=== PATIENT | female | born 1960 | race Caucasian/White ===

== ENCOUNTER 2016-07-01 08:21 | Inpatient (IN) | payer MEDICARE, OTHER ==
[2016-07-01] VITALS (16 sets, daily range): BP systolic 80–120; BP diastolic 58–74; PULSE 62–87; RESP 16–18; TEMP 97.8–98.4; O2SAT 94–100
[~2016-07-01] VITALS: Ht 162.6 cm; Wt 57.8 kg
[~2016-07-01 08:21] MED LIST: COUG100S2 PO; HYDR10TA16 PO; MEDR4PAK3 PO; META800 PO; OXYB5TAB33 PO; OXYC-360 PO; PHEN12.5 PO; REST15CA PO; REST30CA PO; ZITHTAB6 PO; [UNRECOGNIZED DRUG - CODE] PO
[2016-07-01] MEDS ORDERED: RESP: ALBUTEROL 2.5 MG/IPRATROPIUM 0.5 MG NEB (SCH) INH ONE (08:30)
[2016-07-01] MEDS ORDERED: LORazepam 2 MG/ML VIAL IV PUSH ONE (08:30)
[2016-07-01] MEDS ORDERED: methylPREDNISolone SOD SUCC 125 MG/2 ML VIAL IVP ONE (08:30)
[2016-07-01] MEDS: SODIUM CHLORIDE 0.9% FLUSH 10 ML FLUSH IVF PRN ×3 (08:45→13:19)
[2016-07-01 09:01] LABS: AUTOMATED NEUTROPHIL # 3.7 TH/MM3 (1.8-7.7); BASOPHIL % 0.7 % (0.0-2.0); EOSINOPHIL # 0.1 TH/MM3 (0-0.4); HEMATOCRIT 40.3 % (35.0-46.0); HEMO FLAGS DIFF FINAL; LYMPH % 36.6 % (9.0-44.0); LYMPHOCYTE # 2.4 TH/MM3 (1.0-4.8); MEAN CELL VOLUME 89.8 FL (80.0-100.0); MEAN CORPUSCULAR HEMOGLOBIN 30.9 PG (27.0-34.0); MEAN CORPUSCULAR HGB CONC 34.4 % (32.0-36.0); NEUT % 55.7 % (16.0-70.0); PLATELET COUNT 313 TH/MM3 (150-450); RED BLOOD COUNT 4.49 MIL/MM3 (4.00-5.30); RED CELL DISTRIBUTION WIDTH 11.9 % (11.6-17.2); WHITE BLOOD COUNT 6.6 TH/MM3 (4.0-11.0)
[2016-07-01 09:07] LABS: POTASSIUM 3.6 MEQ/L (3.5-5.1)
[2016-07-01 09:10] LABS: BICARBONATE 26.9 MEQ/L (21.0-32.0)
--- NOTE | 2016-07-01 09:25 | PD ---
HPI Chief Complaint: Respiratory Symptoms Time Seen by Provider: 08:22 Travel History International Travel<30 days: No Contact w/Intl Traveler<30days: No Traveled to known affect area: No History of Present Illness HPI 56-year-old female comes to the ER with dyspnea. It started suddenly early this morning. She called an ambulance who brought the patient to the ER. She reports a clicking sensation in her throat and difficulty with inspiration. EMS reports the O2 sat was in the 60s on room air upon their arrival increased to the 90s with a nasal cannula in the ER. The patient reports she was recently diagnosed with bronchitis and completed a course of azithromycin yesterday.. She has had no fever. No similar episode has occurred. PFSH Past Medical History Arthritis: Yes Blood Disorders: No Anxiety: No Depression: No Cancer: No Cardiovascular Problems: No Chemotherapy: No Endocrine: No Genitourinary: Yes (NEEDS TO SELF CATH FOR URINE at times but able to void on own) Headaches: Yes Musculoskeletal: Yes (SPINA BIFIDA) Neurologic: Yes (, EEG done at primary md's office today) Psychiatric: No Respiratory: No Radiation Therapy: No Renal Failure: Yes (HAS TO FORCE URINATION AND SOMETIMES CATH.) Tetanus Vaccination: < 5 Years Influenza Vaccination: No ?: Not Menopausal: Yes : 4 Para: 3 Miscarriage: 1 Past Surgical History AICD: No Arteriovenous Shunt: No Cardiac Surgery: No Genitourinary Surgery: Yes Hysterectomy: Yes Insulin Pump: No Joint Replacement: No Neurologic Surgery: Yes Oral Surgery: Yes (TONSILS) Pacemaker: No Thoracic Surgery: No Tonsillectomy: Yes Other Surgery: Yes (recontruction surgery -had device placed like bird cage to support tracha) Social History Alcohol Use: Yes (OCCAS beer) Tobacco Use: No (states have 2-3 cigs occas. hx of 1/2-1 ppd for 20+yrs) Substance Use: No Allergies-Medications (Allergen,Severity, Reaction): Coded Allergies: Morphine (Verified Allergy, Intermediate, Nausea/Vomiting, 07/01/16) Uncoded Allergies: BRAZIL NUTS (Allergy, Severe, SWOLLEN THROAT, 07/01/16) . DAIRY PRODUCTS (Adverse Reaction, Mild, Diarrhea, 07/01/16) . Reported Meds & Prescriptions Reported Meds & Active Scripts Active Reported Levothyroxine (Levothyroxine Sodium) 100 Mcg Tab 100 Mcg PO DAILY Ditropan (Oxybutynin Chloride) 5 Mg Tab 5 Mg PO Q12HR PRN Dilaudid (Hydromorphone HCl) 4 Mg Tab 4 Mg PO TID PRN Review of Systems Except as stated in HPI: all other systems reviewed are Neg General / Constitutional: No: Fever Respiratory: Positive: Shortness of Breath Physical Exam Narrative GENERAL: Well-nourished well-developed 56-year-old female mild distress SKIN: Focused skin assessment warm/dry. HEAD: Atraumatic. Normocephalic. EYES: Pupils equal and round. No scleral icterus. No injection or drainage. ENT: No nasal bleeding or discharge. Mucous membranes pink and moist. Posterior oropharynx is widely patent. NECK: Trachea midline. No JVD. Surgical incision anterior neck, well healed. There is a palpable "clicking" sensation with gentle manipulation of the trachea. CARDIOVASCULAR: Regular rate and rhythm. No murmur appreciated. RESPIRATORY: Minimal tachypnea. Minimal wheezing. Occasional cough. GASTROINTESTINAL: Abdomen soft, non-tender, nondistended. Hepatic and splenic margins not palpable. MUSCULOSKELETAL: No obvious deformities. No clubbing. No cyanosis. No edema. NEUROLOGICAL: Awake and alert. No obvious cranial nerve deficits. Motor grossly within normal limits. Normal speech. PSYCHIATRIC: Appropriate mood and affect; insight and judgment normal. Data Data Last Documented VS Vital Signs Date Time Temp Pulse Resp B/P Pulse Ox O2 Delivery O2 Flow Rate FiO2 07/01/16 12:15 71 16 92/69 99 Nasal Cannula 2 07/01/16 08:30 98.4 VS reviewed Orders Complete Blood Count With Diff (07/01/16 08:22) Basic Metabolic Panel (Bmp) (07/01/16 08:22) Iv Access Insert/Monitor (07/01/16 08:22) Ecg Monitoring (07/01/16 08:22) Oximetry (07/01/16 08:22) Oxygen Administration (07/01/16 08:22) Chest, Single Ap (07/01/16 08:22) Sodium Chloride 0.9% Flush (Ns Flush) (07/01/16 08:30) Methylprednisolone So Succ Inj (Solumedr (07/01/16 08:30) Albuterol-Ipratropium Neb (Duoneb Neb) (07/01/16 08:30) Soft Tissue Neck (07/01/16 ) Lorazepam Inj (Ativan Inj) (07/01/16 08:30) Sodium Chlor 0.9% 1000 Ml Inj (Ns 1000 M (07/01/16 09:30) Ct Soft Tiss Neck W Iv Cont (07/01/16 09:47) Ct Pulmonary Angiogram (07/01/16 09:47) Iohexol 350 Inj (Omnipaque 350 Inj) (07/01/16 11:15) Sodium Chlorid 0.9% 500 Ml Inj (Ns 500 M (07/01/16 13:15) Blood Culture (07/01/16 13:26) Ceftriaxone Inj (Rocephin Inj) (07/01/16 13:30) Azithromycin Inj (Zithromax Inj) (07/01/16 13:30) Admit Order (Ed Use Only) (07/01/16 13:31) Labs Laboratory Tests Test 07/01/16 08:40 White Blood Count 6.6 TH/MM3 Red Blood Count 4.49 MIL/MM3 Hemoglobin 13.9 GM/DL Hematocrit 40.3 % Mean Corpuscular Volume 89.8 FL Mean Corpuscular Hemoglobin 30.9 PG Mean Corpuscular Hemoglobin 34.4 % Concent Red Cell Distribution Width 11.9 % Platelet Count 313 TH/MM3 Mean Platelet Volume 7.1 FL Neutrophils (%) (Auto) 55.7 % Lymphocytes (%) (Auto) 36.6 % Monocytes (%) (Auto) 6.0 % Eosinophils (%) (Auto) 1.0 % Basophils (%) (Auto) 0.7 % Neutrophils # (Auto) 3.7 TH/MM3 Lymphocytes # (Auto) 2.4 TH/MM3 Monocytes # (Auto) 0.4 TH/MM3 Eosinophils # (Auto) 0.1 TH/MM3 Basophils # (Auto) 0.0 TH/MM3 CBC Comment DIFF FINAL Differential Comment Sodium Level 145 MEQ/L Potassium Level 3.6 MEQ/L Chloride Level 108 MEQ/L Carbon Dioxide Level 26.9 MEQ/L Anion Gap 10 MEQ/L Blood Urea Nitrogen 14 MG/DL Creatinine 0.58 MG/DL Estimat Glomerular Filtration 108 ML/MIN Rate Random Glucose 110 MG/DL Calcium Level 8.5 MG/DL MDM Medical Decision Making Medical Screen Exam Complete: Yes Emergency Medical Condition: Yes Medical Record Reviewed: Yes Differential Diagnosis Pneumonia, bronchitis, trachea injury, injury related to surgery 7 years ago Narrative Course CBC & BMP Diagram 07/01/16 08:40 Last [address] 07/01/1647 Signed Impressions: Service Date/Time: Friday, July 01, 2016 10:58 - CONCLUSION: No acute findings. Jose Arroyo MD CT Angiography 07/01/1647 Signed Impressions: Service Date/Time: Friday, July 01, 2016 10:41 - CONCLUSION: 1. No evidence of pulmonary embolus. 2. Mild right lower lobe atelectasis and mild nonspecific right lower lobe groundglass opacity. 3. Moderate pulmonary parenchymal emphysema. Jose Arroyo MD Chest X-Ray 07/01/1622 Signed Impressions: Service Date/Time: Friday, July 01, 2016 08:58 - CONCLUSION: Atelectasis versus mild consolidation at the right lung base. Jose Arroyo MD Soft Tissue Neck X-Ray 07/01/16 0000 Signed Impressions: Service Date/Time: Friday, July 01, 2016 09:01 - CONCLUSION: 1. Soft tissues unremarkable. 2. Postsurgical findings at C4-5. Moderate severity bony degenerative findings. Jose Arroyo MD The patient's breathing has improved overall. She has had episodes of relative hypotension with systolic blood pressures in the 70s. Trending her blood pressure measurements years into the past demonstrates the tendency towards relatively hypotensive values. Her pulses remained in the 60s. She reports improvement after DuoNeb treatment. There is density in the right lung on chest x-ray and CT possibly suggestive of a pneumonitis, atelectasis or pneumonia. She's had no fever. She has had an impressive cough. There is a vague clicking sensation in the trachea which is palpable on exam the patient complains of it as well however the CT of the soft tissue neck is unremarkable and her O2 sats of been about 100% since arrival and her nasal cannula 02 L right now. Abx started. Blood cultures drawn. d/w Dr Hayes. Critical Care Narrative Aggregate critical care time was 45 minutes. Time to perform other separately billable procedures was not included in the critical care time. My time did not include minutes spent treating any other patients simultaneously or on activities that did not directly contribute to the patient's treatment. The services I provided to this patient were to treat and/or prevent clinically significant deterioration that could result in: Respiratory arrest, hypoxia I provided critical care services requiring my management, as noted below: Chart data review, documentation time, medication orders and management, vital sign assessments/reviewing monitor data, ordering and reviewing lab tests, ordering and interpreting/reviewing x-rays and diagnostic studies, care of the patient and discussion of the patient with the admitting physicians. Diagnosis Primary Impression: Dyspnea and respiratory abnormalities Additional Impressions: Throat symptom Atelectasis Cough Admitting Information Admitting Physician Requests: Observation Juan R Bhatia MD Jul 01, 2016 09:25
[2016-07-01] MEDS ORDERED: SODIUM CHLOR 0.9% 1000 ML INJ 1,000 ML IV ONE (09:30)
[2016-07-01] MEDS ORDERED: OXYB5TAB10 PO (09:35)
[2016-07-01] MEDS ORDERED: DILA4TAB2 PO (09:35)
[2016-07-01] MEDS ORDERED: LEVO100T5 PO (09:37)
--- NOTE | 2016-07-01 09:50 | RADHPO ---
EXAM DATE/TIME: 07/01/2016 08:58 [facility] COMPARISON: No previous studies available for comparison. INDICATIONS : Shortness of breath. MEDICAL HISTORY : Spina bifida. SURGICAL HISTORY : Trachea support device implant. ENCOUNTER: Initial ACUITY: 1 day PAIN SCORE: 0/10 LOCATION: Bilateral chest FINDINGS: Single AP view of the chest. Parenchymal at the anterior aspect of the right lower lung indicating at electasis versus mild consolidation. Cardiomediastinal silhouette within normal limits. No evidence o f pleural effusion or pneumothorax. CONCLUSION: Atelectasis versus mild consolidation at the right lung base. Jose Arroyo MD on July 01, 2016 at 9:47 Board Certified Radiologist. This report was verified electronically.
--- NOTE | 2016-07-01 09:58 | RADHPO ---
EXAM DATE/TIME: 07/01/2016 09:01 [facility] COMPARISON: No previous studies available for comparison. INDICATIONS : Shortness of breath. MEDICAL HISTORY : Spina bifida. SURGICAL HISTORY : Trachea support device. ENCOUNTER: Initial ACUITY: 1 day PAIN SCORE: 0/10 LOCATION: neck. FINDINGS: 2 views soft tissue neck. Retropharyngeal soft tissues within normal limits. Epiglottic shadow withi n normal limits. Postsurgical findings at C4-[address] with fusion hardware in [address]. Moderate-sized osteophy geraldine anteriorly at C3-4 and C4-5. Alignment within normal limits. No evidence of fracture. Interverteb ral disc narrowing at C3-4, C5-6, and C6-7. CONCLUSION: 1. Soft tissues unremarkable. 2. Postsurgical findings at C4-5. Moderate severity bony degenerative findings. Jose Arroyo MD on July 01, 2016 at 9:55 Board Certified Radiologist. This report was verified electronically.
[2016-07-01] MEDS ORDERED: IOHEXOL 350 MG/ML 10 ML VIAL (for RAD DIAG) IV ONE (11:15)
--- NOTE | 2016-07-01 11:57 | RADHPO ---
EXAM DATE/TIME: 07/01/2016 10:41 [facility] COMPARISON: CHEST SINGLE AP, July 01, 2016, 8:58. INDICATIONS : Dyspnea. Harder to get air in than push it out. IV CONTRAST: 50 cc Omnipaque 350 (iohexol) IV RADIATION DOSE: 6.93 CTDIvol (mGy) MEDICAL HISTORY : Spina bifida. SURGICAL HISTORY : Tonsillectomy. Hysterectomy.C1 surgery. ENCOUNTER: Initial ACUITY: 1 day PAIN SCALE: 0/10 LOCATION: chest TECHNIQUE: Volumetric scanning of the chest was performed using a pulmonary embolism protocol MIP images were re constructed. Using automated exposure control and adjustment of the mA and/or kV according to patien t size, radiation dose was kept as low as reasonably achievable to obtain optimal diagnostic quality images. FINDINGS: PULMONARY ARTERIES: No filling defects are seen in the pulmonary arteries through the segmental level. LUNGS: Moderate severity bilateral pulmonary parenchymal emphysema. Patchy atelectasis at the right lung bas e. Mild groundglass opacity in the right lower lobe PLEURAE: There is no pleural thickening or pleural effusion. MEDIASTINUM: There is good visualization of the great vessels of the middle mediastinum. No evidence of mediastin al or hilar adenopathy/mass. MUSCULOSKELETAL: Within normal limits for patient age. MISCELLANEOUS: The visualized upper abdominal organs demonstrate no acute abnormality. CONCLUSION: 1. No evidence of pulmonary embolus. 2. Mild right lower lobe atelectasis and mild nonspecific right lower lobe groundglass opacity. 3. Moderate pulmonary parenchymal emphysema. Jose Arroyo MD on July 01, 2016 at 11:42 Board Certified Radiologist. This report was verified electronically.
--- NOTE | 2016-07-01 12:04 | RADHPO ---
EXAM DATE/TIME: 07/01/2016 10:58 [facility] COMPARISON: CT PULMONARY ANGIOGRAM, July 01, 2016, 10:41. INDICATIONS : Clicking sensation in throat with inspiration. Harder to get air in than push it out. IV CONTRAST: 50 cc Omnipaque 350 (iohexol) IV RADIATION DOSE: 8.62 CTDIvol (mGy) MEDICAL HISTORY : Spina bifida. SURGICAL HISTORY : Hysterectomy. Tonsillectomy.C1 surgery. ENCOUNTER: Initial ACUITY: 1 day PAIN SCALE: 0/10 LOCATION: neck TECHNIQUE: Volumetric scanning of the neck was performed. Using automated exposure control and adjustment of th e mA and/or kV according to patient size, radiation dose was kept as low as reasonably achievable to obtain optimal diagnostic quality images. FINDINGS: NASOPHARYNX: The nasopharyngeal airway has a normal configuration. No mucosal thickening or mass is seen. OROPHARYNX: The intrinsic muscles of the tongue are symmetric. The tonsillar pillars are intact. The prevertebr al soft tissues are not thickened. LARYNX: The supraglottic, glottic, and infraglottic structures are intact. PARAPHARYNGEAL: The parapharyngeal space is intact. SALIVARY GLANDS: The parotid and submandibular glands are intact. LYMPH NODES: No enlarged or necrotic-appearing nodes. THYROID: 9 mm rounded calcification in the left lobe. BONES: Degenerative findings of the cervical spine. Postsurgical findings at C4-5. CONCLUSION: No acute findings. Jose Arroyo MD on July 01, 2016 at 11:58 Board Certified Radiologist. This report was verified electronically.
[2016-07-01] MEDS ORDERED: SODIUM CHLORID 0.9% 500 ML INJ 500 ML IV ONE (13:15)
[2016-07-01] MEDS ORDERED: cefTRIAXone INJ 1,000 MG in SODIUM CHLORIDE 0.9% INJ 100 ML IV ONE (13:30)
[2016-07-01] MEDS ORDERED: AZITHROMYCIN INJ 500 MG in SODIUM CHLOR 0.9% 250 ML INJ 250 ML IV ONE (13:30)
[2016-07-01] MEDS ORDERED: NALOXONE HCL 0.4 MG/ML AMP IV PRN (14:15)
[2016-07-01] MEDS ORDERED: SODIUM CHLORIDE 0.9% FLUSH 10 ML FLUSH IV FLUSH PRN (14:15)
[2016-07-01] MEDS: SODIUM CHLORIDE 0.9% FLUSH 10 ML FLUSH IV FLUSH PRN ×2 (14:40→21:09)
[2016-07-01] MEDS ORDERED: guaiFENesin/DEXTROMETHORPHAN 200 MG/20 MG/10 ML CUP PO PRN (15:00)
[2016-07-01] MEDS ORDERED: SENNOSIDES 8.6 MG TAB PO PRN (15:00)
[2016-07-01] MEDS ORDERED: ONDANSETRON HCL 4 MG/2 ML VIAL IVP PRN (15:00)
[2016-07-01] MEDS: RESP: ALBUTEROL 2.5 MG/IPRATROPIUM 0.5 MG NEB (SCH) INH ×2 (15:24→21:58)
[2016-07-01] MEDS: SODIUM CHLOR 0.45% 1000 ML INJ 1,000 ML IV SCH (15:30)
[2016-07-01] MEDS ORDERED: ACETAMINOPHEN 325 MG TAB PO PRN (16:00)
[2016-07-01 17:45] LABS: BLOOD GAS BASE EXCESS -3.9 mmol/L (-2-2); BLOOD GAS CARBOXYHEMOGLOBIN 1.6 % (0-4); BLOOD GAS HCO3 21 mmol/L (22-26); BLOOD GAS O2 HGB SATURATION 96 % (90-100); BLOOD GAS OXYGEN CONTENT 16.2 Vol % (12.0-20.0); BLOOD GAS PCO2 37 mmHG (38-42); BLOOD GAS PO2 128 mmHG (61-120); BLOOD GAS TOTAL HGB 11.8 G/DL (12.0-16.0); TEMP CORR TO 98.6
[2016-07-01 17:46] LABS: CRITICAL VALUE NO; DRAW SITE RT RADIAL; LITER FLOW 2 L/M; NUMBER OF ARTERIAL PUNCTURES 1; OXYGEN DEVICE NASAL CANNULA; STAT NO; ULNAR PULSE PRESENT
[2016-07-01] MEDS ORDERED: ENOXAPARIN SODIUM 40 MG/0.4 ML SYRINGE SQ ONE (18:00)
--- NOTE | 2016-07-01 18:04 | MB ---
cc: GRUPO STEPHENS DATE OF CONSULTATION 07/01/16 REASON FOR CONSULTATION Respiratory distress and hypoxia. HISTORY OF PRESENT ILLNESS This is a 56-year-old white female who has had a prior history of C-spine surgery at the [facility] more than 4 years ago. She was experiencing some shortness of breath earlier today which started rather suddenly early in the morning. She had a clicking sensation in her neck and tracheal region and following that she just could not get any air into her lungs and thus became extremely short of breath and states that her O2 sats had dropped into the 60s. She then was brought to the emergency room by [facility]. She was placed on oxygen via mask and subsequently a nasal canula and saturation was done which apparently was over 95%. The patient then was sent for a CT scan of the chest and neck. The CT of the neck showed no significant abnormalities. No evidence of upper airway compromise and no lesions were seen. CT angiogram was done which showed some atelectasis of the lung bases. No evidence of pulmonary emboli and there was mild ground glass opacities in the right lower lobe as well as evidence of emphysema. The patient has now been placed on IV Zithromax and Rocephin. Her white count is normal at 6.6. She states that she is breathing better and she does have an occasional cough but denies any hemoptysis or chest pain. The patient had been on Zithromax prior to this admission and finished a full course this past week for an episode of bronchitis. PAST MEDICAL HISTORY Has included history of spina bifida since childhood. She has had several procedures done on her spine including the lumbar spine where she had more than three procedures and she had a C-spine reconstruction and apparently had to have a halo brace or a device placed around the neck following a surgery. She had a tonsillectomy remotely. Most of her cervical procedures were done at the [facility] and the last procedure was in 2008 where anterior cervical disk fusion was done with cadaveric bones and subsequently the hardware was removed and a cage procedure was done. She has had multiple tethered cord surgeries of the neck. Other surgeries include carpal tunnel release bilaterally, ankle fusion times two, tonsillectomy remotely, hysterectomy as well as C-sections times three. HABITS The patient smoked half to one pack per day for over 20 years. Alcohol use moderate, weekly. ALLERGIES ALLERGIES TO MORPHINE. MEDICATIONS Included: 1. Roxicodone. 2. Recently on Zithromax. 3. Naprosyn p.r.n. 4. Ativan as needed. FAMILY HISTORY Noncontributory. Both parents alive, in good health. REVIEW OF SYSTEMS The patient has had no recent weight loss. No headaches. Some postnasal drip, hoarseness, choking sensation, cough with expectoration, epigastric distress and reflux. She does have urinary retention and has to catheterize herself at times. She has trouble ambulating due to weakness of her right lower extremity and uses a cane to ambulate. The other system review is negative except for anxiety. PHYSICAL EXAMINATION GENERAL: This averagely built middle aged white female who is alert, in no acute distress. VITAL SIGNS: Blood pressure 112/70, pulse is 6085, respirations 18, temperature is 97.5. HEENT: Head normocephalic. Pupils are reactive. Tongue is moist. Throat is injected. Ears no inflammation. NECK: There is a scar from surgery in the anterior neck. No venous distention. No thyromegaly or lymphadenopathy. CHEST: Equal movements with decreased breath sounds at the bases. Occasional wheezes in the upper chest. No crackles in either side. HEART: The heart sounds are regular S1-S2 with no murmur. No S3. ABDOMEN: The abdomen is soft, schapoid. No masses or organomegaly, tenderness. Her bowel sounds are active. EXTREMITIES: No lesions. No edema. No calf tenderness. Decrease peripheral pulses. Reflexes are 1+. There is some weakness of the right lower extremity. NEURO: Cranial nerves not tested. RECTAL: Examination is deferred. SKIN: Dry and warm. IMPRESSION 1. Acute respiratory insufficiency with upper airway spasm. 2. 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 3. Probable underlying obstructive lung disease. 4. Acute exacerbation of chronic bronchitis. 5. Hypothyroidism. PLAN The patient has been placed on oxygen at 2 liters nasal canula. A blood gas study will be done. Nebulized DuoNeb solution added q.i.d. as well as Solu-Medrol 40 milligrams IV q. 8 hours. We will continue the Rocephin 1 gram IV daily, Zithromax 500 milligrams IV daily. The patient will also be placed on Lovenox subcu 40 milligrams daily. A pulmonary function study will be done with bronchodilators. The patient will also need an ENT evaluation once she is stabilized. Thank you Dr. Hayes for this consultation. Grupo Stephens MD JMAYLIN/KINA /5:18 PM /5:30 PM
[2016-07-01] MEDS ORDERED: SODIUM CHLORIDE 0.9% FLUSH 10 ML FLUSH IV FLUSH SCH (21:00)
[2016-07-01] MEDS ORDERED: methylPREDNISolone SOD SUCC 40 MG/1 ML VIAL IV SCH (21:00)
[2016-07-01] MEDS: SODIUM CHLORIDE 0.9% FLUSH 10 ML FLUSH IV FLUSH SCH (21:08)
[2016-07-01] MEDS: methylPREDNISolone SOD SUCC 40 MG/1 ML VIAL IV SCH (21:09)
[2016-07-01] MEDS: HYDROmorphone HCL 2 MG TAB PO PRN (22:37)
[2016-07-01] MEDS: ALPRAZolam 0.25 MG TAB PO PRN (22:37)
[2016-07-02] VITALS (10 sets, daily range): BP systolic 85–105; BP diastolic 55–69; PULSE 66–86; RESP 16–18; TEMP 96.7–98.8; O2SAT 47–99
[2016-07-02] MEDS: RESP: ALBUTEROL 2.5 MG/IPRATROPIUM 0.5 MG NEB (SCH) INH ×4 (03:53→21:26)
[2016-07-02] MEDS: LEVOTHYROXINE SODIUM 100 MCG TAB PO SCH (06:52)
[2016-07-02] MEDS: HYDROmorphone HCL 2 MG TAB PO PRN ×4 (06:52→23:44)
[2016-07-02] MEDS: SODIUM CHLOR 0.45% 1000 ML INJ 1,000 ML IV SCH ×2 (06:52→16:41)
[2016-07-02] MEDS: methylPREDNISolone SOD SUCC 40 MG/1 ML VIAL IV SCH ×3 (06:53→23:43)
[2016-07-02] MEDS: SODIUM CHLORIDE 0.9% FLUSH 10 ML FLUSH IV FLUSH PRN (06:53)
[2016-07-02 08:55] LABS: POTASSIUM 3.8 MEQ/L (3.5-5.1)
[2016-07-02 08:56] LABS: BASOPHIL % 0.2 % (0.0-2.0); EOSINOPHIL % 0.1 % (0.0-4.0); HEMATOCRIT 35.1 % (35.0-46.0); HEMO FLAGS DIFF FINAL; LYMPHOCYTE # 1.5 TH/MM3 (1.0-4.8); MEAN CELL VOLUME 90.6 FL (80.0-100.0); MEAN CORPUSCULAR HEMOGLOBIN 29.9 PG (27.0-34.0); NEUT % 77.7 % (16.0-70.0); PLATELET COUNT 317 TH/MM3 (150-450); RED BLOOD COUNT 3.87 MIL/MM3 (4.00-5.30); RED CELL DISTRIBUTION WIDTH 12.6 % (11.6-17.2); WHITE BLOOD COUNT 8.9 TH/MM3 (4.0-11.0)
[2016-07-02 08:58] LABS: BICARBONATE 26.3 MEQ/L (21.0-32.0)
[2016-07-02] MEDS: AZITHROMYCIN INJ 500 MG in SODIUM CHLOR 0.9% 250 ML INJ 250 ML IV SCH (09:00)
[2016-07-02] MEDS: ALPRAZolam 0.25 MG TAB PO PRN ×2 (10:09→23:46)
[2016-07-02] MEDS: SODIUM CHLORIDE 0.9% FLUSH 10 ML FLUSH IV FLUSH SCH ×2 (10:10→23:45)
[2016-07-02] MEDS: cefTRIAXone INJ 1,000 MG in SODIUM CHLORIDE 0.9% INJ 100 ML IV SCH (10:11)
[2016-07-02] MEDS: PANTOPRAZOLE SOD 40 MG DELAYED RELEASE TAB PO SCH (10:21)
[2016-07-02] MEDS: ENOXAPARIN SODIUM 40 MG/0.4 ML SYRINGE SQ SCH (10:21)
--- NOTE | 2016-07-02 10:21 | MH ---
cc: HOLLIS WONG MD DATE OF ADMISSION: 07/01/2016 CHIEF COMPLAINT Shortness of breath. HISTORY OF PRESENT ILLNESS This is a 56-year-old female with a past medical/surgical history significant for arthritis, urinary retention, spina bifida, tonsillectomy, had a device placed like a birdcage to support trachea in the neck and hysterectomy, who came to the ER at [facility] complaining of shortness of breath, wheezing and cough. She had very minimal sputum but she said that she got short of breath to the extent that she was not able to take care of herself at home and decided to come to [facility]. She called EMS. Her oxygen saturation was in the 80s on room air during arrival and increased to 90% with nasal cannula. The patient was recently diagnosed with bronchitis and completed a course of azithromycin. She has no fever. Other than that nothing significant. PAST MEDICAL/SURGICAL HISTORY As dictated above. Also, history of hypothyroidism. SOCIAL HISTORY She smoked 2-3 cigarettes a day for more than 20 years. She drinks beer occasionally. Denies any drug abuse. Lives at home with her boyfriend. She is on Disability. FAMILY HISTORY Nothing significant. ALLERGIES 1. MORPHINE. 2. BRAZIL NUTS. 3. DAIRY PRODUCTS. MEDICATIONS 1. Levothyroxine 100 mcg p.o. daily. 2. Ditropan 5 mg p.o. q.12h. 3. Dilaudid 4 mg p.o. t.i.d. p.r.n. pain. REVIEW OF SYSTEMS Positive for cough and mild shortness of breath. All other review of systems are negative. PHYSICAL EXAMINATION GENERAL: This is a 56-year-old female lying on the bed not in acute distress. VITAL SIGNS: Temperature 98.0, heart rate 66, respirations 16, blood pressure 92/60. O2 saturation 98% on two liters nasal cannula. HEENT: Normocephalic, atraumatic. EOMI. PERRL. Oral mucosa moist. NECK: Supple. No visible thyromegaly or neck mass. Trachea is central. CV: Regular rate and rhythm. LUNGS: Respiration with bilateral mild wheezing, decreased air entry bilaterally. ABDOMEN: Soft, nontender. Bowel sounds audible. EXTREMITIES: No cyanosis or clubbing. Full range of motion of all extremities. NEUROLOGIC: Awake, alert, oriented x4. No focal deficits. SKIN: Warm and dry. PSYCHIATRIC: The patient is cooperative. Mood and affect are normal. LABORATORY CBC is totally unremarkable. ABG done shows bicarb 21, base excess -3.9. Oxygen saturation 96%, pH 7.36, PCO2 37 with PO2 128. BMP is unremarkable except for glucose 133 high, chloride 108 high. Blood cultures done x2 are negative so far. IMAGING Soft tissue neck x-ray was done and shows soft tissue unremarkable. Postsurgical findings and C4-C5, moderate to severe bony degenerative findings. Chest x-ray done shows atelectasis versus mild consolidation at the right lung base. CT done shows nothing acute. CT angio chest was done and shows no evidence of pulmonary embolus, mild right lower lobe atelectasis, mild nonspecific right lower lobe ground-glass opacity, moderate pulmonary parenchymal emphysema. ASSESSMENT AND PLAN 1. This is a 56-year-old female who came to the ER diagnosed with shortness breath, but most worrisome is COPD exacerbation. The patient is on Rocephin one gram IV daily and Zithromax 500 mg IV daily. Patient is also on Solu-Medrol 40 mg IV q.8h. and Robitussin DM 10 mL q.4h., DuoNeb nebulization q.6h. Pulmonary was consulted. Dr. Stephens has seen the patient. I agree with the plan. The patient needs an ENT evaluation once stabilized. 2. History of hypothyroidism. Continue home medication. 3. Urinary retention. Continue home medication. 4. History of spina bifida. 5. History of arthritis. Continue home medication. 6. DVT prophylaxis. 7. Lovenox 40 mg subcutaneous daily. 8. GI prophylaxis with Protonix 40 mg p.o. daily. 9. Check CBC and CMP tomorrow morning. Hollis Wong MD EA/LEANDRO /9:39 AM /10:02 AM
[2016-07-03] VITALS (9 sets, daily range): BP systolic 110–138; BP diastolic 66–88; PULSE 62–78; RESP 18–20; TEMP 96.7–98.2; O2SAT 97–99
[2016-07-03] MEDS: RESP: ALBUTEROL 2.5 MG/IPRATROPIUM 0.5 MG NEB (SCH) INH ×4 (03:47→21:31)
[2016-07-03] MEDS: LEVOTHYROXINE SODIUM 100 MCG TAB PO SCH (06:20)
[2016-07-03] MEDS: methylPREDNISolone SOD SUCC 40 MG/1 ML VIAL IV SCH (06:20)
[2016-07-03] MEDS: HYDROmorphone HCL 2 MG TAB PO PRN ×4 (06:20→22:00)
[2016-07-03] MEDS: SODIUM CHLOR 0.45% 1000 ML INJ 1,000 ML IV SCH ×2 (06:21→18:26)
[2016-07-03 06:37] LABS: AUTOMATED NEUTROPHIL # 8.8 TH/MM3 (1.8-7.7); HEMATOCRIT 33.2 % (35.0-46.0); HEMO FLAGS DIFF FINAL; LYMPH % 8.6 % (9.0-44.0); LYMPHOCYTE # 0.8 TH/MM3 (1.0-4.8); MEAN CELL VOLUME 91.1 FL (80.0-100.0); MONO % 2.2 % (0.0-8.0); NEUT % 89.2 % (16.0-70.0); PLATELET COUNT 318 TH/MM3 (150-450); RED BLOOD COUNT 3.64 MIL/MM3 (4.00-5.30); RED CELL DISTRIBUTION WIDTH 12.8 % (11.6-17.2); WHITE BLOOD COUNT 9.8 TH/MM3 (4.0-11.0)
[2016-07-03 06:45] LABS: CHLORIDE 108 MEQ/L (98-107); POTASSIUM 3.8 MEQ/L (3.5-5.1); SODIUM (NA) 145 MEQ/L (136-145)
[2016-07-03 06:53] LABS: ANION GAP 9 MEQ/L (5-15); BICARBONATE 27.6 MEQ/L (21.0-32.0); BLOOD UREA NITROGEN 9 MG/DL (7-18)
[2016-07-03 06:56] LABS: ALT (GPT) 32 U/L (10-53); AST (GOT) 28 U/L (15-37); GLOMERULAR FILTRATION RATE 95 ML/MIN (>89)
[2016-07-03 06:57] LABS: TOTAL BILIRUBIN ADULT 0.2 MG/DL (0.2-1.0)
[2016-07-03 06:58] LABS: ALKALINE PHOSPHATASE 57 U/L (45-117)
--- NOTE | 2016-07-03 08:34 | HHI.PR ---
Subjective History of Present Illness Patient still SOB/ Wheezing but getting better. Review of Systems Constitutional Constitutional: Weakness Pulmonary Respiratory: Coughing, Shortness of Breath, Wheezing Vitals/Results Intake & Output 07/02/16 07/02/16 07/03/16 15:00 23:00 07:00 Intake Total 1192 ml 492 ml Balance 1192 ml 492 ml Intake Oral 500 ml IV Total 692 ml 492 ml Vital Signs Vital Signs Date Time Temp Pulse Resp B/P Pulse Ox O2 Delivery O2 Flow Rate FiO2 07/03/16 04:00 98.1 72 18 110/72 99 07/03/16 00:00 98.0 76 18 115/78 97 07/02/16 23:00 73 07/02/16 21:26 98 21 07/02/16 20:00 98.3 70 18 105/69 99 07/02/16 16:00 98.8 86 18 85/57 95 07/02/16 15:34 99 21 07/02/16 13:33 18 07/02/16 12:00 96.8 73 18 90/55 93 07/02/16 10:36 99 21 CBC/BMP: 07/03/16 0540 07/03/16 0540 Lab Results Laboratory Tests Test 07/03/16 05:40 White Blood Count 9.8 TH/MM3 Red Blood Count 3.64 MIL/MM3 Hemoglobin 10.9 GM/DL Hematocrit 33.2 % Mean Corpuscular Volume 91.1 FL Mean Corpuscular Hemoglobin 30.0 PG Mean Corpuscular Hemoglobin 33.0 % Concent Red Cell Distribution Width 12.8 % Platelet Count 318 TH/MM3 Mean Platelet Volume 7.7 FL Neutrophils (%) (Auto) 89.2 % Lymphocytes (%) (Auto) 8.6 % Monocytes (%) (Auto) 2.2 % Eosinophils (%) (Auto) 0.0 % Basophils (%) (Auto) 0.0 % Neutrophils # (Auto) 8.8 TH/MM3 Lymphocytes # (Auto) 0.8 TH/MM3 Monocytes # (Auto) 0.2 TH/MM3 Eosinophils # (Auto) 0.0 TH/MM3 Basophils # (Auto) 0.0 TH/MM3 CBC Comment DIFF FINAL Differential Comment Sodium Level 145 MEQ/L Potassium Level 3.8 MEQ/L Chloride Level 108 MEQ/L Carbon Dioxide Level 27.6 MEQ/L Anion Gap 9 MEQ/L Blood Urea Nitrogen 9 MG/DL Creatinine 0.65 MG/DL Estimat Glomerular Filtration 95 ML/MIN Rate Random Glucose 209 MG/DL Calcium Level 8.3 MG/DL Total Bilirubin 0.2 MG/DL Aspartate Amino Transf 28 U/L (AST/SGOT) Alanine Aminotransferase 32 U/L (ALT/SGPT) Alkaline Phosphatase 57 U/L Total Protein 5.9 GM/DL Albumin 3.1 GM/DL Physical Exam General General Appearance: No Acute Distress, Comfortable Eyes Eye Exam: Sclera White, Extraocular Movement Intact Throat Throat Exam: Oral Mucosa [place] & Moist, Oral Pharynx Normal Neck Neck Exam: Neck Supple, Trachea Midline Pulmonary Resp Exam: Decreased Bases Resp Remarks Bilateral wheezing Cardiology CV Exam: Regular, Normal Sinus Rhythm Chest/Breast Chest/Breast Exam: Symmetry Gastrointestinal/Abdomen GI Exam: Soft, Non-Tender, Bowel Sounds Present Musculoskeletal MS Exam: Normal Tone Integumentary Skin Exam: Clear, Warm, Dry, Intact Extremeties Extremities Exam: No Edema Neurologic Neuro Exam: Alert, Awake, Oriented, Speech Clear, Moving All Extremities, No Focal Deficits Psychiatric Psych Exam: Appropriate Responses VTE Prophylaxis VTE Prophylaxis Meds: Lovenox PUD Prophylasis PUD Prophylaxis: Protonix Assessment/Plan Assessment/Plan ASSESSMENT AND PLAN 1. This is a 56-year-old female who came to the ER diagnosed with shortness breath, but most worrisome is COPD exacerbation. The patient is on Rocephin one gram IV daily and Zithromax 500 mg IV daily. Patient is also on Solu-Medrol 40 mg IV q.8h. and Robitussin DM 10 mL q.4h., DuoNeb nebulization q.6h. Pulmonary input noted. Dr. Stephens has seen the patient. The patient needs an ENT evaluation once stabilized. 2. History of hypothyroidism. Continue home medication. 3. Urinary retention. Continue home medication. 4. History of spina bifida. 5. History of arthritis. Continue home medication. 6. DVT prophylaxis. 7. Lovenox 40 mg subcutaneous daily. 8. GI prophylaxis with Protonix 40 mg p.o. daily. 9. Anemia will monitor. Check CBC and CMP tomorrow morning. Discussed Condition with: Patient Hollis Tate MD July 03, 2016 08:34
[2016-07-03] MEDS: cefTRIAXone INJ 1,000 MG in SODIUM CHLORIDE 0.9% INJ 100 ML IV SCH (10:43)
[2016-07-03] MEDS: PANTOPRAZOLE SOD 40 MG DELAYED RELEASE TAB PO SCH (10:44)
[2016-07-03] MEDS: AZITHROMYCIN INJ 500 MG in SODIUM CHLOR 0.9% 250 ML INJ 250 ML IV SCH (10:44)
[2016-07-03] MEDS: SODIUM CHLORIDE 0.9% FLUSH 10 ML FLUSH IV FLUSH SCH ×2 (10:44→20:54)
[2016-07-03] MEDS: ENOXAPARIN SODIUM 40 MG/0.4 ML SYRINGE SQ SCH (10:45)
--- NOTE | 2016-07-03 11:54 | HHI.PR ---
Subjective Remarks She is better. No stridor or click in neck. Off O2. Objective Vital Signs Date Time Temp Pulse Resp B/P Pulse Ox O2 Delivery O2 Flow Rate FiO2 07/03/16 09:32 98 21 07/03/16 08:00 98.2 78 18 123/79 97 07/03/16 04:00 98.1 72 18 110/72 99 07/03/16 00:00 98.0 76 18 115/78 97 07/02/16 23:00 73 07/02/16 21:26 98 21 07/02/16 20:00 98.3 70 18 105/69 99 07/02/16 16:00 98.8 86 18 85/57 95 07/02/16 15:34 99 21 07/02/16 13:33 18 07/02/16 12:00 96.8 73 18 90/55 93 I/O 07/02/16 07/02/16 07/02/16 07/03/16 07/03/16 07/03/16 07:00 15:00 23:00 07:00 15:00 23:00 Intake Total 738 ml 1192 ml 492 ml Balance 738 ml 1192 ml 492 ml Intake Oral 500 ml IV Total 738 ml 692 ml 492 ml # Voids 2 Result Diagram: 07/03/16 0540 07/03/16 0540 Objective Remarks GENERAL: This averagely built middle aged white female who is alert, in no acute distress. HEENT: Head normocephalic. Pupils are reactive. Tongue is moist. Throat is clear. Ears no inflammation. NECK: There is a scar from surgery in the anterior neck. No venous distention. No thyromegaly or lymphadenopathy. CHEST: Equal movements with decreased breath sounds at the bases. No crackles in either side. HEART: The heart sounds are regular S1-S2 with no murmur. No S3. ABDOMEN: The abdomen is soft, scaphoid. No masses or organomegaly, tenderness. Her bowel sounds are active. EXTREMITIES: No lesions. No edema. No calf tenderness. Decrease peripheral pulses. Reflexes are 1+. There is some weakness of the right lower extremity. NEURO: Cranial nerves not tested. RECTAL: Examination is deferred. SKIN: Dry and warm. Assessment and Plan Assessment and Plan IMPRESSION 1. Acute respiratory insufficiency with upper airway spasm. 2. 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 3. Probable underlying obstructive lung disease. 4. Acute exacerbation of chronic bronchitis. 5. Hypothyroidism. Plan : 1. D/C o2 . 2. Switch to PO meds . 3. Needs ENT Evaluation . 4. Continue bronchodilators and switch to inhalers 5. Home per Josse Marr MD July 03, 2016 11:54
[2016-07-03] MEDS: predniSONE 20 MG TAB PO SCH (20:53)
[2016-07-03] MEDS: ALPRAZolam 0.25 MG TAB PO PRN (20:53)
[2016-07-03] MEDS: CEFUROXIME AXETIL 500 MG TAB PO SCH (20:53)
[2016-07-04] VITALS: BP 123/81; PULSE 68; RESP 18; TEMP 96.7; O2SAT 96
[2016-07-04] MEDS: RESP: ALBUTEROL 2.5 MG/IPRATROPIUM 0.5 MG NEB (SCH) INH ×2 (03:52→10:11)
[2016-07-04 04:00] VITALS: BP 127/88; PULSE 70; RESP 18; TEMP 96.1; O2SAT 98
[2016-07-04] MEDS: HYDROmorphone HCL 2 MG TAB PO PRN (05:50)
[2016-07-04] MEDS: LEVOTHYROXINE SODIUM 100 MCG TAB PO SCH (05:50)
[2016-07-04] MEDS: SODIUM CHLOR 0.45% 1000 ML INJ 1,000 ML IV SCH (05:51)
[2016-07-04 06:04] LABS: AUTOMATED NEUTROPHIL # 7.3 TH/MM3 (1.8-7.7); EOSINOPHIL # 0.1 TH/MM3 (0-0.4); EOSINOPHIL % 0.6 % (0.0-4.0); HEMATOCRIT 33.1 % (35.0-46.0); HEMO FLAGS DIFF FINAL; LYMPH % 14.5 % (9.0-44.0); LYMPHOCYTE # 1.3 TH/MM3 (1.0-4.8); MEAN CELL VOLUME 93.1 FL (80.0-100.0); MEAN CORPUSCULAR HEMOGLOBIN 31.2 PG (27.0-34.0); MEAN CORPUSCULAR HGB CONC 33.5 % (32.0-36.0); MONO % 3.8 % (0.0-8.0); NEUT % 81.1 % (16.0-70.0); PLATELET COUNT 301 TH/MM3 (150-450); RED BLOOD COUNT 3.56 MIL/MM3 (4.00-5.30); RED CELL DISTRIBUTION WIDTH 12.9 % (11.6-17.2)
[2016-07-04 06:14] LABS: CHLORIDE 107 MEQ/L (98-107); POTASSIUM 3.9 MEQ/L (3.5-5.1); SODIUM (NA) 144 MEQ/L (136-145)
[2016-07-04 06:22] LABS: ANION GAP 7 MEQ/L (5-15); BLOOD UREA NITROGEN 11 MG/DL (7-18)
[2016-07-04 06:25] LABS: ALT (GPT) 34 U/L (10-53); AST (GOT) 22 U/L (15-37); GLOMERULAR FILTRATION RATE 106 ML/MIN (>89)
[2016-07-04 06:26] LABS: TOTAL BILIRUBIN ADULT 0.3 MG/DL (0.2-1.0)
[2016-07-04 06:28] LABS: ALKALINE PHOSPHATASE 50 U/L (45-117)
[2016-07-04 08:00] VITALS: BP 154/94; PULSE 65; RESP 18; TEMP 96.1; O2SAT 96
--- NOTE | 2016-07-04 08:00 | HHI.PR ---
Subjective History of Present Illness Patient SOB/ Wheezing much better wants to go home. d/w [facility] [place] Review of Systems Constitutional Constitutional: Weakness Pulmonary Respiratory: Coughing Vitals/Results Intake & Output 07/03/16 07/03/16 07/04/16 15:00 23:00 07:00 Intake Total 1150 ml 1833 ml Balance 1150 ml 1833 ml Intake Oral 1150 ml 240 ml IV Total 1593 ml # Voids 6 3 # Bowel Movements 0 1 Vital Signs Vital Signs Date Time Temp Pulse Resp B/P Pulse Ox O2 Delivery O2 Flow Rate FiO2 07/04/16 04:00 96.1 70 18 127/88 98 07/04/16 00:00 96.7 68 18 123/81 96 07/03/16 23:18 64 07/03/16 21:31 98 21 07/03/16 20:00 96.7 62 18 122/66 98 07/03/16 16:00 97.8 73 18 138/88 97 07/03/16 12:00 97.6 74 20 118/74 98 07/03/16 09:32 98 21 07/03/16 08:00 98.2 78 18 123/79 97 CBC/BMP: 07/04/16 0522 07/04/16 0522 Lab Results Laboratory Tests Test 07/04/16 05:22 White Blood Count 9.0 TH/MM3 Red Blood Count 3.56 MIL/MM3 Hemoglobin 11.1 GM/DL Hematocrit 33.1 % Mean Corpuscular Volume 93.1 FL Mean Corpuscular Hemoglobin 31.2 PG Mean Corpuscular Hemoglobin 33.5 % Concent Red Cell Distribution Width 12.9 % Platelet Count 301 TH/MM3 Mean Platelet Volume 7.4 FL Neutrophils (%) (Auto) 81.1 % Lymphocytes (%) (Auto) 14.5 % Monocytes (%) (Auto) 3.8 % Eosinophils (%) (Auto) 0.6 % Basophils (%) (Auto) 0.0 % Neutrophils # (Auto) 7.3 TH/MM3 Lymphocytes # (Auto) 1.3 TH/MM3 Monocytes # (Auto) 0.3 TH/MM3 Eosinophils # (Auto) 0.1 TH/MM3 Basophils # (Auto) 0.0 TH/MM3 CBC Comment DIFF FINAL Differential Comment Sodium Level 144 MEQ/L Potassium Level 3.9 MEQ/L Chloride Level 107 MEQ/L Carbon Dioxide Level 30.0 MEQ/L Anion Gap 7 MEQ/L Blood Urea Nitrogen 11 MG/DL Creatinine 0.59 MG/DL Estimat Glomerular Filtration 106 ML/MIN Rate Random Glucose 142 MG/DL Calcium Level 8.1 MG/DL Total Bilirubin 0.3 MG/DL Aspartate Amino Transf 22 U/L (AST/SGOT) Alanine Aminotransferase 34 U/L (ALT/SGPT) Alkaline Phosphatase 50 U/L Total Protein 5.7 GM/DL Albumin 3.0 GM/DL Physical Exam General General Appearance: No Acute Distress, Comfortable Eyes Eye Exam: Sclera White, Extraocular Movement Intact Throat Throat Exam: Oral Mucosa [place] & Moist, Oral Pharynx Normal Neck Neck Exam: Neck Supple, Trachea Midline Pulmonary Resp Remarks Bilateral wheezing much better. Cardiology CV Exam: Regular, Normal Sinus Rhythm Chest/Breast Chest/Breast Exam: Symmetry Gastrointestinal/Abdomen GI Exam: Soft, Non-Tender, Bowel Sounds Present Musculoskeletal MS Exam: Normal Tone Integumentary Skin Exam: Clear, Warm, Dry, Intact Extremeties Extremities Exam: No Edema Neurologic Neuro Exam: Alert, Awake, Oriented, Speech Clear, Moving All Extremities, No Focal Deficits Psychiatric Psych Exam: Appropriate Responses VTE Prophylaxis VTE Prophylaxis Meds: Lovenox PUD Prophylasis PUD Prophylaxis: Protonix Assessment/Plan Assessment/Plan ASSESSMENT AND PLAN 1. This is a 56-year-old female who came to the ER diagnosed with shortness breath, but most worrisome is COPD exacerbation. The patient is on Rocephin one gram IV daily and Zithromax 500 mg IV daily. Patient is also on Prednisone 20 mg PO BID... and Robitussin DM 10 mL q.4h., DuoNeb nebulization q.6h. Pulmonary input noted. Dr. Stephens has seen the patient. The patient needs an ENT evaluation as out patient. 2. History of hypothyroidism. Continue home medication. 3. Urinary retention. Continue home medication. 4. History of spina bifida. 5. History of arthritis. Continue home medication. 6. DVT prophylaxis. 7. Lovenox 40 mg subcutaneous daily. 8. GI prophylaxis with Protonix 40 mg p.o. daily. 9. Anemia will monitor. ok to dc home today. f/u with PCP/ Pulmonary 1 week. Discussed Condition with: Patient Hollis Tate MD July 04, 2016 08:00
[2016-07-04] MEDS: CEFUROXIME AXETIL 500 MG TAB PO SCH (09:40)
[2016-07-04] MEDS: SODIUM CHLORIDE 0.9% FLUSH 10 ML FLUSH IV FLUSH SCH (09:40)
[2016-07-04] MEDS: predniSONE 20 MG TAB PO SCH (09:41)
[2016-07-04] MEDS: PANTOPRAZOLE SOD 40 MG DELAYED RELEASE TAB PO SCH (09:41)
[2016-07-04] MEDS: ENOXAPARIN SODIUM 40 MG/0.4 ML SYRINGE SQ SCH (09:41)
[2016-07-04 10:12] VITALS: O2SAT 98
[2016-07-04 12:00] VITALS: BP 156/96; PULSE 66; RESP 18; TEMP 97.7; O2SAT 99
[2016-07-04] MEDS ORDERED: PRED20 PO (12:34)
[2016-07-04] MEDS ORDERED: ALBU1AER5 INH (12:34)
[2016-07-04] MEDS ORDERED: CEFT500T3 PO (12:34)
[2016-07-04] MEDS ORDERED: FLUTI110I INH (12:34)
--- NOTE | 2016-07-04 15:52 | MD ---
cc: HOLLIS WONG MD ADMISSION DATE: 07/01/2016 DISCHARGE DATE: 07/04/2016 Okay to discharge the patient home. CONDITION AT THE TIME OF DISCHARGE Satisfactory. ACTIVITY As tolerated. DIET Cardiac diet. ALLERGIES BRAZIL NUTS, DAIRY PRODUCTS, MORPHINE. MEDICATIONS Include: 1. Albuterol Pro-Air two puff inhalation q.6 hours. 2. Ceftin 500 mg twice a day. 3. Flovent 110 mcg inhalation one puff inhalation twice a day. 4. Prednisone 20 mg twice a day for 3 days. 5. Dilaudid 4 mg p.o. t.i.d. 6. Levothyroxine 100 mcg p.o. daily. 7. Oxybutynin 5 mg p.o. q. 12 hour. The patient advised to followup with PCP and pulmonary in 1 week. ADMISSION DIAGNOSIS Shortness of breath secondary to COPD/asthma exacerbation. DISCHARGE DIAGNOSIS 1. Shortness of breath improved, COPD exacerbation, asthma exacerbation improved. The patient was given Solu-Medrol IV, Rocephin and Zithromax IV during the hospital stay and DuoNeb nebulization. Dr. Stephens saw the patient. The patient needs ENT evaluation, the patient advised, the patient verbalized understanding. 2. History of hypothyroidism. 3. History of urinary retention. The patient is on appropriate medicine. 4. History of spina bifida. 5. History of arthritis. 6. Anemia. HOSPITAL COURSE This is a 56-year-old female admitted with shortness of breath, diagnosed with COPD/asthma exacerbation. She was seen by Dr. Stephens. The patient remained stable. No acute event happened. The patient was discharged in satisfactory condition. The patient started on Pro-Air inhaler and Flovent inhaler which she was not on before. The patient's condition improved. The patient was discharged in satisfactory condition. The patient advised to follow up with ENT, pulmonary and PCP. Hollis Wong MD EA/TLL /12:39 PM /3:50 PM
--- NOTE | 2016-07-05 09:45 | RSPPFT ---
DATE OF PROCEDURE: 07/02/16 COMMENTS: Spirometry demonstrates an FEV1 of 1.9 at 75% of predicted, FVC of 2.5 at 79%, FEV1/fVC ratio is 77%. The FEF 25-75 is 67% of predicted. Post-bronchodilator study demonstrated mild improvements in the FEF 25-75. Lung volumes were not completed. Flow volume loops appear unremarkable. IMPRESSION: 1. Early small airways obstruction. 2. Mild response to use of bronchodilator indicating reversibility.
== END 2016-07-04 14:19 | disposition home or self-care (01) | DRG 192 ==
LOC: PHED 08:21 → PHEDA 13:33 → PH3A 15:15
PROVIDERS: ADMIT Family Medicine; ATTEND Family Medicine
DX: J44.1 Chronic obstructive pulmonary disease with (acute) exacerbation (principal); Q05.9 Spina bifida, unspecified; R06.89 Other abnormalities of breathing; E03.9 Hypothyroidism, unspecified; R33.9 Retention of urine, unspecified; M19.90 Unspecified osteoarthritis, unspecified site; Z87.891 Personal history of nicotine dependence; D64.9 Anemia, unspecified
CPT/HCPCS: 36600; 70360; 70491; 71010; 71275; 80048; 80053; 82805; 85025; 87040; 94060; 94640; 94664; 96374; 96375; J0456; J0696; J1650; J2060; J2920; J2930; J7030; J7040; J7050; J7512; Q9967

== ENCOUNTER → 2017-04-15 | Outpatient (CLI) | payer MEDICARE, OTHER ==
[~2017-04-15] MED LIST changes: +ALBU1AER5 INH; +CEFT500T3 PO; -COUG100S2 PO; +DILA4TAB10 PO; +FLUTI110I INH; -HYDR10TA16 PO; +LEVO100T5 PO; -MEDR4PAK3 PO; -META800 PO; -OXYB5TAB33 PO; +OXYB5TAB8 PO; -OXYC-360 PO; -PHEN12.5 PO; +PRED20 PO; -REST15CA PO; -REST30CA PO; -ZITHTAB6 PO; -[UNRECOGNIZED DRUG - CODE] PO
[2017-04-15 09:52] LABS: AUTOMATED NEUTROPHIL # 4.8 TH/MM3 (1.8-7.7); BASOPHIL % 0.5 % (0.0-2.0); EOSINOPHIL % 0.6 % (0.0-4.0); HEMATOCRIT 37.3 % (35.0-46.0); HEMOGLOBIN 12.9 GM/DL (11.6-15.3); LYMPH % 33.6 % (9.0-44.0); LYMPHOCYTE # 2.8 TH/MM3 (1.0-4.8); MEAN CELL VOLUME 92.1 FL (80.0-100.0); MEAN CORPUSCULAR HEMOGLOBIN 31.9 PG (27.0-34.0); MEAN CORPUSCULAR HGB CONC 34.6 % (32.0-36.0); MEAN PLATELET VOLUME 7.4 FL (7.0-11.0); MONO % 8.3 % (0.0-8.0); MONOCYTE # 0.7 TH/MM3 (0-0.9); PLATELET COUNT 265 TH/MM3 (150-450); RED BLOOD COUNT 4.05 MIL/MM3 (4.00-5.30); RED CELL DISTRIBUTION WIDTH 12.8 % (11.6-17.2); WHITE BLOOD COUNT 8.4 TH/MM3 (4.0-11.0)
[2017-04-15 10:12] LABS: ALBUMIN 3.8 GM/DL (3.4-5.0); AST (GOT) 15 U/L (15-37); BICARBONATE 28.7 MEQ/L (21.0-32.0); BLOOD UREA NITROGEN 12 MG/DL (7-18); CHLORIDE 103 MEQ/L (98-107); CREATININE 0.62 MG/DL (0.50-1.00); GLOMERULAR FILTRATION RATE 100 ML/MIN (>89); GLUCOSE,FASTING 99 MG/DL (74-99); SODIUM (NA) 138 MEQ/L (136-145)
[2017-04-15 10:13] LABS: CHOLESTEROL 196 MG/DL (120-200)
[2017-04-15 10:23] LABS: ALKALINE PHOSPHATASE 49 U/L (45-117); ALT (GPT) 19 U/L (10-53); CHOLESTEROL/ HDL RATIO 2.16 RATIO; FREE T4 1.26 NG/DL (0.76-1.46); HDL CHOLESTEROL 90.5 MG/DL (40.0-60.0); LDL CHOLESTEROL 94 MG/DL (0-99); TOTAL BILIRUBIN ADULT 0.4 MG/DL (0.2-1.0); TOTAL PROTEIN 6.7 GM/DL (6.4-8.2); TRIGLYCERIDES 56 MG/DL (42-150)
== END ==
LOC: PLAB 07:07
DX: M54.2 Cervicalgia (principal); M54.5 Low back pain; Z79.899 Other long term (current) drug therapy
CPT/HCPCS: 36415; 80053; 80061; 82306; 84439; 84443; 85025